=== PATIENT | male | born 1990 | race Caucasian/White ===

== ENCOUNTER 2019-08-29 14:44 | Emergency (ER) | payer SELFPAY ==
[2019-08-29] MEDS ORDERED: Fluorescein Sodium TOPICAL* 1 MG TEST STRIP OPHTHALMIC ONE (14:53)
--- NOTE | 2019-08-29 14:59 | ED ---
Throat Pain/Nasal Congestion - HPI Summary HPI Summary: The patient is a 29 y/o male presenting to [facility] with a chief complaint of possible FB in the left eye with sensation onset this afternoon. He reports that he was working with a piece of telephone wire about inch thick, when it snapped back and hit him in the eye. He is now having difficulty opening the eye with photophobia and changes in visualizing colors, although he is able to see shapes. He endorses a headache and abrasion to the nose. He notes that he is scheduled for Lasik on 08/31/2019, but he otherwise has not had issues with his eyes. 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 Last tetanus 2 years ago. No other PMHx. Nonsmoker, no EtOH, no substance use. Medications reviewed. Allergies noted. - History of Current Complaint Chief Complaint: EDEyeProblem Time Seen by Provider: 08/29/19 14:53 Hx Obtained From: Patient Onset/Duration: Lasting Minutes, Still Present Severity: Moderate Associated Signs And Symptoms: Positive: FB Sensation Cough: None Related History: Other (Noted In Comments) - plan for Lasik in both eyes on - Allergies/Home Medications Allergies/Adverse Reactions: Allergies Allergy/AdvReac Type Severity Reaction Status Date / Time No Known Allergies Allergy Verified 08/29/19 14:50 PMH/Surg Hx/FS Hx/Imm Hx - Surgical History Surgical History: None Surgery Procedure, Year, and Place: none Infectious Disease History: No Infectious Disease History: Reports: Traveled Outside the [place] in Last 30 Days Review of Systems Positive: Photophobia, Other - FB sensation of left eye, difficulty with color in eye and opening eye Positive: Other - abrasion to nose Positive: Headache All Other Systems Reviewed And Are Negative: Yes Physical Exam - Summary Physical Exam Summary: General: Well appearing, no distress HEENT: PERRL, EOMI, Corneal abrasion over the pupil center, Conjunctival injection of the left eye, Abrasion to nasal bridge, Pressure of left eye 14mmHg and pressure in right eye 17mmHg (using Tonometer Pen). Vision 20/70 bilaterally Cardiovascular: Skin is well perfused Pulmonary: No respiratory distress, no tachypnea Abdomen: Non-distended Skin: Abrasion nasal bridge, well perfused MSK: No edema Psych: Normal affect Neuro: A&Ox3 Triage Information Reviewed: Yes Vital Signs On Initial Exam: Initial Vitals Temp Pulse Resp BP Pulse Ox 99.2 F 99 18 144/81 98 08/29/19 14:45 08/29/19 14:45 08/29/19 14:45 08/29/19 14:45 08/29/19 14:45 Vital Signs Reviewed: Yes Procedures - Sedation Patient Received Moderate/Deep Sedation with Procedure: No Diagnostics - Vital Signs Vital Signs Temp Pulse Resp BP Pulse Ox 08/29/19 14:45 99.2 F 99 18 144/81 98 - Laboratory Lab Statement: Any lab studies that have been ordered have been reviewed, and results considered in the medical decision making process. Re-Evaluation - Re-Evaluation First Eval Re-Evaluation Time: 15:00 Comment: eye pain improved with tetracaine, will re-evaluate with vision acuity test Second Eval Re-Evaluation Time: 15:30 Comment: tonometer used for pressures, 14mmHg on left and 17mmHg on right Third Eval Re-Evaluation Time: 15:40 Comment: patient able to see in visual acuity test, will d/c EENT Course/Dx - Course Course Of Treatment: 29 y/o male p/w L eye injury: PERRL, EOMI, visual acuity 20/70 both eyes. Pressures: OD: 17, OS 14, neg siedel sign. fluorescein exam with corneal abrasion over the middle of the pupil. Able to see better after tetricaine. Patient states pain improved with tetracaine, given erythromycin ointment. Will follow-up with ophthalmology as needed - Diagnoses Provider Diagnoses: Corneal abrasion Discharge ED - Sign-Out/Discharge Documenting (check all that apply): Patient Departure - Patient will be discharged home. - Discharge Plan Condition: Stable Disposition: HOME Prescriptions: Erythromycin OPTH OINT* [Erythromycin 0.5% OPTH OINT*] 1 applic LEFT EYE QID 5 Days #1 ophth.oint Patient Education Materials: Corneal Abrasion (ED) Referrals: Darrick Calles MD [Medical Doctor] - If Needed [facility] [Outside] - 3 Days Additional Instructions: You were seen in the emergency department for an eye injury. You have a corneal abrasion. Use erythromycin eye cream 4 times a day for 5 days. Follow up with ophthalmology for worsening symptoms. Please follow up with your primary care doctor in the next 2-3 days and return to the emergency department for your eye pain, blurry vision, worsening or concerning symptoms. It was a pleasure taking care of you today. - Billing Disposition and Condition Condition: STABLE Disposition: Home - Attestation Statements Document Initiated by Yodit: Yes Documenting Scribe: Radha Johnston Provider For Whom Yodit is Documenting (Include Credential): Dr. Michael Peralta MD Scribe Attestation: I, Radha Johnston, scribed for Dr. Michael Peralta MD on 08/29/19 at 1614. Scribe Documentation Reviewed: Yes Provider Attestation: The documentation as recorded by the Radha tobin accurately reflects the service I personally performed and the decisions made by me, Dr. Michael Peralta MD Status of Scribe Document: Viewed
[2019-08-29] MEDS ORDERED: Tetracaine 0.5% OPTH.SOL 4 ML* 1 DROP BTL BOTH EYES ONE (15:00)
[2019-08-29] MEDS ORDERED: Erythromycin OPTH OINT* APPLIC OINT LEFT EYE ONE (15:40)
[2019-08-29] MEDS ORDERED: Erythromycin TOPICAL GEL* 30 GM TUBE TOPICAL ONE (15:40)
[2019-08-29 15:59] VITALS: BP 126/65
== END 2019-08-29 15:57 | disposition home or self-care (01) ==
LOC: ED 14:44
DX: S05.02XA Injury of conjunctiva and corneal abrasion without foreign body, left eye, initial encounter (principal); R51 Headache; W22.8XXA Striking against or struck by other objects, initial encounter; Y93.89 Activity, other specified; Y92.9 Unspecified place or not applicable
CPT/HCPCS: 99282; A9270-GY